=== PATIENT | male | born 1995 | race Caucasian/White ===

== ENCOUNTER → 2016-11-14 | Outpatient (CLI) | payer OTHER ==
[~2016-11-14] MED LIST: CLIN150C PO; OXYC-57 PO; OXYC1TAB3 PO
== END ==
LOC: C.LAB 03:32
DX: Z02.83 Encounter for blood-alcohol and blood-drug test (principal)

== ENCOUNTER 2017-02-27 02:13 | Emergency (ER) | payer OTHER ==
[~2017-02-27] VITALS: Ht 182.9 cm; Wt 97.4 kg
[2017-02-27 02:18] VITALS: TEMP 36.6; Ht 182.9 cm; Wt 97.4 kg
[2017-02-27] MEDS ORDERED: LIDOCAINE/EPINEPH/TETRACAINE 1 EA SYR EXT STA (02:37)
[2017-02-27] MEDS ORDERED: CLINDAMYCIN 150MG HOME PACK PO ONE (03:45)
--- NOTE | 2017-02-27 04:09 | EMERGENCY ROOM VISIT NOTE ---
History First contact with patient: 02:25 Chief Complaint: NASAL PAIN/INJURY Stated Complaint: BROKEN/BLEEDING NOSE,NECK HURTS History of Present Illness The patient is a 21 year old male who presents to the Emergency Room with complaints of facial pain, nasal pain, headache, neck pain after falling onto a keg tonight. Patient has a laceration to his upper lip and nasal bridge. He has a nosebleed that is now resolved. He's had plenty of alcohol but no drugs. Patient states his friends accidentally dropped on his face and hit the keg while trying to do a keg stand. Tetanus is current. Pain 4 out of 10. Nothing makes it better or worse. Patient denies eye pain, chest pain, dyspnea , abdominal pain, leg pain, arm pain, numbness, tingling, vision problems. Review of Systems See HPI for pertinent positives & negatives. A total of 10 systems reviewed and were otherwise negative. Past Medical/Surgical History Medical Problems: (1) No Known Active Medical Problems Social History Smoking Status: Never Smoker Alcohol Use: none Drug Use: none Marital Status: single Housing Status: lives with family Occupation Status: student Current/Historical Medications No Active Prescriptions or Reported Meds Allergies Coded Allergies: Amoxicillin (Verified Allergy, Severe, RASH, 02/27/17) Clavulanic Acid (Verified Allergy, Severe, RASH, 02/27/17) Watermelon (Unverified Allergy, Unknown, rash, 02/27/17) Physical Exam Vital Signs Date Time Temp Pulse Resp B/P Pulse Ox O2 Delivery O2 Flow Rate FiO2 02/27/17 03:17 75 18 131/70 97 Room Air 02/27/17 02:18 36.6 91 16 138/80 97 Room Air Physical Exam PHYSICAL EXAM: VITALS: Vitals are noted on the nurse's note and reviewed by myself. Vital signs stable. GENERAL: White male every 2 hours odor, in no acute distress, nondiaphoretic, well-developed well-nourished. SKIN: 3 cm upper lip laceration and nasal bridge superficial laceration The stent the skin was without obvious lacerations or abrasions. Capillary reflex less than 2 seconds. HEAD: Normocephalic atraumatic. EARS: External auditory canals clear, tympanic membranes pearly leiva without erythema or effusion bilaterally. No hemotympanums. No brizuela sign. No mastoid tenderness. EYES: Pupils equal round and reactive to light and accommodation. Conjunctivae with injection, sclerae without icterus. Extraocular movements intact. NOSE: Patent, turbinates without inflammation or discharge. No sinus tenderness. No septal hematoma, dried blood in both nares with nasal bridge abdomen is concerning for fracture and tender to palpation. FACE: Right-sided mandible facial bone tenderness. Patient unable to fully open her jaw secondary to pain MOUTH: Mucous membranes moist. Pharynx without erythema or exudate. Uvula midline. Airway patent. Tongue does not deviate. Dental exam: Upper gumline with superficial abrasion, no chipped teeth, second upper right incisor minimally loose. Patient states this is chronic for him. NECK: Supple without nuchal rigidity. Cervical spine is tender C5 and 6 in a c- collar was placed. No JVD. HEART: Regular rate and rhythm without murmurs gallops or rubs. LUNGS: Clear to auscultation bilaterally without wheezes, rales or rhonchi. No dullness to percussion. No retractions or accessory muscle use. No chest wall tenderness. ABDOMEN: Positive bowel sounds x 4. Normal tympanic percussion. Soft, nontender, without masses or organomegaly. No guarding or rebound tenderness. MUSCULOSKELETAL: No tenderness of the thoracic or lumbar spine. Full range of motion without tenderness to palpation in all extremities. Normal gait. Strength 5/5 throughout. Peripheral pulses 2+. NEURO: Patient was alert and oriented to person place and time. Normal Mini- Mental status exam. Normal sensation to light and sharp touch. Negative Romberg and pronator drift. Cerebellar function intact. No focal neurological deficits. Medical Decision & Procedures Medications Administered Medications (Trade) Dose Ordered Sig/Mindy Route Start Time Stop Time Status Last Admin Dose Admin Tetracaine/ Epinephrine/ Lidocaine (L.e.t. Gel 4%/ 1:100/0.5%) 1 ea NOW STAT EXT 02/27/17 02:37 02/27/17 02:39 DC 02/27/17 02:41 1 EA Clindamycin HCl (Cleocin 150MG Home Pack) 1 homepack UD ONCE PO 02/27/17 03:45 02/27/17 03:46 DC 02/27/17 03:54 1 HOMEPACK Procedure Location: upper lip Total length: 3cm Complexity: simple Verbal consent was obtained after the risks and benefits were explained, including but not limited to bleeding, scarring, infection, pain, and bone/joint /nerve damage. At this time, the risks of the procedure are less than the risks of NOT performing the procedure. A time out was taken and the correct patient and site identified. The skin was prepped with betadine. The target area was anesthetized with LET. Copious irrigation was performed using NS. The skin was re-prepped with betadine and a sterile field set. The wound was explored for foreign bodies and none found. Examination revealed no injury to deep structures such as tendons, bone, or significant blood vessels. Debridement was not performed. The wound edges were approximated using 7, 6-0 simple interrupted nylon sutures. Hemostasis and excellent approximation was achieved. Antibacterial ointment and a sterile dressing applied. Detailed wound care instructions and signs and symptoms of infection reviewed with the pt. No complications and the patient tolerated the procedure well. ED Course Prior records/ancillary studies reviewed. Triage Nursing notes reviewed. Additional history obtained from mother. The patient's history was concerning for traumatic injury Differential diagnosis: Etiologies such as fracture, dislocation, intra-abdominal, pneumothorax, intrathoracic , intracranial, neurologic, as well as other traumatic pathologies were entertained. Physical examination findings: As above. The patients vitals were stable. ER treatment provided: Laceration repaired as above Dermabond was placed to the superficial abrasion to the nasal bridge. On reassessment the patient felt better. Vital signs were stable. Diagnostic interpretation by me: Imaging studies: CT HEAD: No intracranial hemorrhage, skull fracture, or other acute intracranial abnormality. Nasal bone and nasal septum fractures. CT FACIAL: Nasal bone fractures with mild displacement. Fracture of the bony nasal septum. No evidence of additional facial bone fracture. Soft tissue swelling of the nose and upper lip. Mild opacities in the maxillary sinuses. CT C SPINE: No acute fracture or traumatic subluxation of the cervical spine. Straightening of the cervical spine which may be related to positioning or muscle spasm. Prominent adenoids. Correlate clinically. Radiologist: Gudelia Garcia MD Study ready at 03:31 and initial results transmitted This appears to be consistent with headache injury, nasal bone fracture, lacerations. Patient was advised to follow-up with ENT for his nasal bone injury and family care for the laceration. He was counseled on head injury and signs and symptoms and verbalized understanding this. He was advised to return to the ER immediately for headache, fevers, confusion, worsening signs or symptoms or as needed. Patient was neurovascularly and neurologically intact. His mom was caring for him tonight and I felt it was reasonable discharge him home in her care. By the evaluation outlined above emergent etiologies such as dislocation, intra-abdominal, pneumothorax, pulmonary contusion, hemothorax, intracranial, neurologic,as well as others were deemed relatively unlikely. The pt informed about the findings as listed above. All questions were answered and pleased with the treatment. Return instructions were outlined and the patient was discharged in stable condition. Outpatient prescription management: Clindamycin Referral: The patient was referred to ENT and family care for follow-up in 2 to 3 days for a recheck of the current condition. case reviewed with my Attending Medical Decision As above Impression Primary Impression: Head injury Additional Impressions: Nasal bone fracture Facial laceration Open mouth wound Nasal laceration Fall Departure Information Dispostion Home / Self-Care Condition GOOD Prescriptions No Active Prescriptions or Reported Meds Referrals No Doctor, Assigned (PCP) Patient Instructions My [facility] Additional Instructions Follow-up with ENT in one to 2 days, call for an appointment for your Nasal bone fracture and injury. Frequently apply ice to nasal bridge for 15 minutes 3 -4 times a day, not directly on the skin. Dental injury: Clindamycin 150mg: Take one pill 4 times daily for 10 days for your infection. Take with food, but avoid dairy. Avoid prolonged sun exposure since this medication makes you temporarily more susceptible to sunburns. All antibiotics can cause diarrhea. If this occurs and you feel worse or it does not resolve in 1-2 days follow up with your doctor or return to the Emergency Department as this could be signs of serious underlying problems. Any medication can cause an allergic reaction, stop the pills immediately and return to the ER for rash, hives, breathing difficulties, or swelling. [place] teeth twice a day, floss daily and do warm saltwater gargles 3 times a day. See a dentist as soon as possible for definitive care for your dental problem. Return to ER sooner for facial swelling, fever, redness, worsening signs or symptoms or as needed. Head injury and laceration: Keep wound clean and dry. Do not allow any crusting or dried blood to accumulate on sutures. If this occurs, use a 1:1 solution of hydrogen peroxide/ water on a Q-tip to clean the wound. Use an antibiotic ointment for 3-4 days, then let wound dry. Suture removal in 5-7 days. Return sooner for any signs of infection (increasing redness, swelling, drainage). Ice and elevate for swelling and pain. Keep covered when in sun until sutures removed then SPF 50 or higher for one year. Vitamin E oil if desired two weeks after suture removal for reduction of scar Read head injury handout and return for any symptoms. Tylenol 1000 mg as needed for pain (Maximum 3000 mg Tylenol in 24 hr period). Avoid alcohol and contact sports/activities for one week and follow up with family doctor prior to returning to these activities if still symptomatic. Ice and elevate head. If your symptoms persist more than a week then follow up with the concussion clinic. Call [phone]. Return to ER sooner for headache, fevers, confusion, worsening signs or symptoms or as needed. Problem Qualifiers Primary Impression: Head injury Encounter type: initial encounter Qualified Codes: S09.90XA - Unspecified injury of head, initial encounter Additional Impressions: Nasal bone fracture Encounter type: initial encounter Fracture type: open Qualified Codes: S02.2XXB - Fracture of nasal bones, initial encounter for open fracture Facial laceration Encounter type: initial encounter Qualified Codes: S01.81XA - Laceration without foreign body of other part of head, initial encounter
[2017-02-27] MEDS ORDERED: CLIN150C PO (04:11)
[2017-02-27 04:22] VITALS: BP 130/80; PULSE 83; O2SAT 98
--- NOTE | 2017-02-27 09:19 | DIAGNOSTIC IMAGING REPORT ---
CT OF THE HEAD WITHOUT CONTRAST CLINICAL HISTORY: Etoh, head/neck/facial pain/injury. COMPARISON STUDY: No previous studies for comparison. CT DOSE: 1047.43 mGy.cm TECHNIQUE: Helical axial images of the head were obtained without IV contrast. Automated exposure control was utilized for the study. FINDINGS: No acute intracranial hemorrhage, midline shift or mass effect is present. Ventricular system is normal. Basilar cisterns are patent. There are no extra-axial collections. Arthur-white differentiation is maintained. Fractures of the nasal bones and nasal septum are better depicted on the maxillofacial CT. No calvarial fractures identified. IMPRESSION: 1. No acute intracranial findings. 2. No calvarial fracture. 3. Bilateral nasal bone fractures and fractures of the nasal septum which are better depicted on the maxillofacial CT. Electronically signed by: Gee Zhao M.D. 02/27/2017 9:18 AM Dictated Date/Time: 02/27/2017 9:15 AM
--- NOTE | 2017-02-27 09:23 | DIAGNOSTIC IMAGING REPORT ---
MAXILLOFACIAL CT WITHOUT CONTRAST CLINICAL HISTORY: Etoh, head/neck/facial pain/injury. COMPARISON STUDY: None. TECHNIQUE: A maxillofacial CT was performed without IV contrast. Coronal and sagittal reformats were viewed. FINDINGS: Nasal soft tissue swelling is present. There is an acute comminuted, moderately displaced left nasal bone fracture with a minimally displaced right nasal bone fracture. There are minimally displaced fractures of the bony aspect of the nasal septum. Alignment of the temporomandibular joints is anatomic. Globes are intact. There is no retrobulbar hematoma. There is facial soft tissue swelling. IMPRESSION: Comminuted, moderately displaced left nasal bone fracture and minimally displaced fractures of the right nasal bone and nasal septum. Electronically signed by: Gee Zhao M.D. 02/27/2017 9:21 AM Dictated Date/Time: 02/27/2017 9:18 AM
--- NOTE | 2017-02-27 09:24 | DIAGNOSTIC IMAGING REPORT ---
CT OF THE CERVICAL SPINE WITHOUT CONTRAST CLINICAL HISTORY: Etoh, head/neck/facial pain/injury. COMPARISON STUDY: No previous studies for comparison. TECHNIQUE: Helical axial images of the cervical spine were obtained without IV contrast. Sagittal and coronal reconstructions were viewed. FINDINGS: There is straightening of the normal cervical lordosis. Alignment is otherwise anatomic. Vertebral body heights are maintained. Craniocervical junction is intact. There is no acute cervical spine fracture. There is no prevertebral edema. The adenoids are enlarged. IMPRESSION: No acute cervical spine fracture or subluxation. Electronically signed by: Gee Zhao M.D. 02/27/2017 9:23 AM Dictated Date/Time: 02/27/2017 9:21 AM
[2017-03-03] MEDS ORDERED: OXYC-57 PO (10:31)
== END 2017-02-27 04:24 | disposition home or self-care (01) ==
LOC: C.EDB 02:14 → C.EDA 04:24
DX: S09.90XA Unspecified injury of head, initial encounter (principal); S02.2XXA Fracture of nasal bones, initial encounter for closed fracture; S01.511A Laceration without foreign body of lip, initial encounter; S00.512A Abrasion of oral cavity, initial encounter; S00.31XA Abrasion of nose, initial encounter; W04.XXXA Fall while being carried or supported by other persons, initial encounter; M54.2 Cervicalgia

== ENCOUNTER → 2017-03-03 | Day surgery (SDC) | payer OTHER ==
--- NOTE | 2017-03-02 12:30 | History and Physical: Surg Cnt ---
History & Physical Date March 02, 2017. Chief Complaint nasal and septal fracture History of Present Illness The patient is a 21 year old male with complaints of Past Medical/Surgical History Medical Problems: (1) No Known Active Medical Problems Additional History Hepatic Disease: No Endocrine Disorder: No Kidney Disease: No Hypertension: No Heart Disease: No Bleeding Tendencies: No Infectious Diseases: No Allergies Coded Allergies: Amoxicillin (Verified Allergy, Severe, RASH, 02/27/17) Clavulanic Acid (Verified Allergy, Severe, RASH, 02/27/17) Watermelon (Unverified Allergy, Unknown, rash, 02/27/17) Home Medications Scheduled Clindamycin Hcl (Cleocin), 150 MG PO QID Physical Examination Skin: warm/dry, no rash Eyes: normal inspection, EOMI, sclerae normal ENT: normal ENT inspection, pharynx normal Head: normocephalic, atraumatic Neck: supple, no adenopathy, trachea midline Respiratory/Chest: lungs clear, normal breath sounds, no respiratory distress Cardiovascular: regular rate, rhythm, no edema, no murmur Abdomen / GI: normal bowel sounds, non tender Back: normal inspection Extremities: normal inspection, normal range of motion Neurologic/Psych: no motor/sensory deficits, alert, normal reflexes, oriented x 3 Diagnosis nasal and septal fracture Plan of Treatment septoplasty, closed reduction of nose
[~2017-03-03] VITALS: Ht 182.9 cm; Wt 94.0 kg
[~2017-03-03] MED LIST changes: +ATROPINE SULFATE 0.1 MG/ML 5ML SYR IV PRN; +BACITRACIN OINT 15 GM TUBE ONE; +CEFAZOLIN 2000 MG/60 ML D5W IV SCH; +DEXAMETHASONE SOD INJ 4 MG/ML VIAL ONE; +EpHEDrine SULFATE INJ 50 MG/ML AMP IV PRN; +EpINEphrine INJ 1MG/ML AMP 1 MG/ML AMP ONE; +FENTANYL CITRATE INJ 50 MCG/1 ML 2 ML VIAL IV PRN; +FENTANYL CITRATE INJ 50 MCG/1 ML 2 ML VIAL ONE; +FLUMAZENIL 0.1 MG/1 ML 10 ML VIAL IV PRN; +GELATIN SPONGE 12-7MM ONE; +HYDROmorphone INJ 2 MG/ML SYR/VIAL IV PRN; +LABETALOL HCL IV 5 MG/ML 20ML IV PRN; +LACTATED RINGER'S 1000ML 500 ML IV SCH; +LIDO 2%/EPINEPHRINE 1:100000 20 ML VIAL INFIL ONE; +LIDOCAINE 4% MPF SOAK 5 ML = 1 DOSE TOP ONE; +LIDOCAINE HCL 2% 2 ML VIAL (20MG/ML) ONE; +MEPERIDINE HCL 25 MG/ML CARP IV PRN; +MIDAZOLAM HCL 1 MG/ML 2ML VIAL ONE; +NALOXONE HCL 0.4 MG/1 ML VIAL/CARP IV PRN; +ONDANSETRON INJ 2 MG/ML 2 ML VIAL IV PRN; +ONDANSETRON INJ 2 MG/ML 2 ML VIAL ONE; +OXYCODONE/ACETAMINOPHEN 5-325 TAB PO PRN; +PHENYLEPHRINE 100MCG/ML 5ML SYR IV PRN; +PROPOFOL IV EMULSION 10 MG/ML 20 ML VIAL IV ONE; +SODIUM CHLORIDE 0.9% 1000ML 1,000 ML IV SCH
[2017-03-03 08:54] VITALS: Ht 182.9 cm; Wt 94.0 kg
--- NOTE | 2017-03-03 09:09 | History & Physical Bridge Note ---
H&P Re-Evaluation Bridge Note: I have examined the patient, reviewed the History & Physical and in the interval since the performance of the History & Physical I have noted the following changes of clinical significance: No changes noted
--- NOTE | 2017-03-03 10:32 | Discharge Instructions-SurgCtr ---
Discharge Instructions Date of Service March 03, 2017. Visit Reason for Visit: Nasal And Septal Fracture Discharge Discharge Diagnosis / Problem: same Discharge Goals Goal(s): Improve function, Therapeutic intervention Activity Recommendations Activity Limitations: resume your previous activity Anesthesia . Post Anesthesia Instructions: If you have had General Anesthesia or IV Sedation: * Do not drive today. * Resume driving when surgeon permits. * Do not make important decisions or sign legal documents today. * Call surgeon for: 1. Temperature elevations greater than 101 degrees F. 2. Uncontrollable pain. 3. Excessive bleeding. 4. Persistent nausea and vomiting. 5. Medication intolerance (nausea, vomiting or rash). * For nausea and vomiting use only clear liquids such as: tea, soda, bouillon until nausea subsides, then gradually increase diet as tolerated. * If you have any concerns or questions, call your surgeon's office. If physician is unavailable and it is an emergency, call 911 or go to the nearest emergency room. . Instructions / Follow-Up Instructions / Follow-Up ACTIVITY RECOMMENDATIONS: * Being up and around is good, but no strenuous activity, heavy lifting or physical exertion for one week. * Keep your head elevated 30 degrees when lying down or sleeping. * Do not blow your nose for 48 hours, sniff back instead. * Avoid hot showers. OVER THE COUNTER MEDICATIONS: * You may use Tylenol * Avoid aspirin or aspirin containing products, e.g. as they may increase bleeding. SPECIAL CARE INSTRUCTIONS: * Expect to have bloody drainage from your nose and/or down your throat for one to three days. Change drip pad as needed. * Begin irrigating your nose with saline solution today, at least six to ten times per day and sniff back to help remove old clots or crust. * You may experience nasal and facial congestion, pain and pressure, this is normal. * Please call with any significant and/or progressive pain, redness, swelling around the eyes, visual changes, fever of 101.5 degrees F, active bleeding or any problems or concerns. * If active bleeding occurs, spray the nose three times at one minute intervals with Afrin spray and call or cell phone: . If unable to reach the doctor, go to the nearest Emergency Department. Special Diet: * Avoid extremely hot fluids. FOLLOW UP VISIT: Follow-up Visit with Dr. Narayanan If not already scheduled, please call to schedule. Diet Recommendations Home Diet: no limitations Pending Studies Studies pending at discharge: no Medical Emergencies . Who to Call and When: Medical Emergencies: If at any time you feel your situation is an emergency, please call 911 immediately. . Non-Emergent Contact Non-Emergency issues call your: Primary Care Provider . . "Provider Documentation" section prepared by Mallory Narayanan. .
--- NOTE | 2017-03-03 11:46 | Anesthesia Progress Nt - [facility] ---
Anesthesia Post Op Note Date & Time March 03, 2017 at 11:46 Vital Signs Pain Intensity: 0 Vital Signs Past 12 Hours Date Time Temp Pulse Resp B/P Pulse Ox O2 Delivery O2 Flow Rate FiO2 03/03/17 11:36 116/71 03/03/17 11:33 53 3 03/03/17 11:33 55 3 100 03/03/17 11:32 57 7 99 03/03/17 11:32 57 7 03/03/17 11:31 120/72 03/03/17 11:30 36.9 51 20 120/72 99 Room Air 03/03/17 11:27 52 17 100 03/03/17 11:27 50 17 03/03/17 11:26 118/77 03/03/17 11:23 59 15 100 03/03/17 11:23 60 15 03/03/17 11:22 63 12 100 03/03/17 11:22 61 12 03/03/17 11:20 125/77 03/03/17 11:17 69 20 100 03/03/17 11:17 72 20 03/03/17 11:16 113/87 03/03/17 11:12 65 16 03/03/17 11:12 67 16 100 03/03/17 11:11 61 16 03/03/17 11:11 59 16 125/65 100 03/03/17 11:10 69 18 03/03/17 11:10 67 18 100 03/03/17 11:06 132/73 03/03/17 11:05 82 24 03/03/17 11:05 84 24 134/70 100 03/03/17 11:04 36.7 94 16 134/70 99 Mask 8 03/03/17 08:58 36.9 57 16 124/77 100 Room Air Notes Mental Status: alert / awake / arousable, participated in evaluation Pt Amnestic to Procedure: Yes Nausea / Vomiting: adequately controlled Pain: adequately controlled Airway Patency, RR, SpO2: stable & adequate BP & HR: stable & adequate Hydration State: stable & adequate Anesthetic Complications: no major complications apparent
[2017-03-03 11:47] VITALS: TEMP 36.4
[2017-03-03 12:03] VITALS: BP 120/74; PULSE 51; O2SAT 99
--- NOTE | 2017-03-03 16:03 | OPERATIVE REPORT ---
DATE OF OPERATION: 03/03/2017 REOPERATIVE DIAGNOSIS: Nasal and septal fracture. POSTOPERATIVE DIAGNOSIS: Same. PROCEDURE: Septoplasty and closed reduction of nose. SURGEON: Dr. Narayanan. ANESTHESIA: General endotracheal. COMPLICATIONS: None. BLOOD LOSS: Less than 10 mL. HISTORY OF PRESENT ILLNESS: A 21-year-old male, fell on his nose when doing a handstand. The dorsum of nose deviated to the left and the septum was deviated to the right. The above procedure felt to be indicated. DESCRIPTION OF PROCEDURE: The patient was brought to the operating room and placed in supine position. General anesthesia was induced using LMA. The nose was decongested using cottonoids with topical solution of 4 mL of 4% Xylocaine mixed with 1 mL of epinephrine. Injection 2% Xylocaine 1:1,000 strength epinephrine was also used. The bone spur to the right was isolated using the endoscope. Incision was made over the spur using the 15 blade, superior inferior tunnels were elevated and the cartilaginous spur was cut using the 15 blade and fractured laterally. The bony spur was then fractured upward and medially releasing the bony cartilaginous spur which was removed using the Desmond forceps returning the septum to the midline. Separately, on the left side there was a smaller spur projecting to the left, this was also isolated via superior inferior tunnels after making an incision with a 15 blade and the spur was fractured superiorly and removed using the Desmond forceps. The septum was packed with a half piece of Gelfoam on each side. The right nasal bone was deviated, this had to be elevated back in position with a padded freer and the left nasal bone was pushed back to the midline. The [place] splint was placed on the dorsum of the nose. The patient tolerated the procedure well and was taken to recovery area in satisfactory condition. I attest to the content of the Intraoperative Record and any orders documented therein. Any exceptio ns are noted below.
== END | disposition home or self-care (01) ==
LOC: X.SURG 08:40
PROVIDERS: ATTEND Otolaryngology
DX: S02.2XXA Fracture of nasal bones, initial encounter for closed fracture (principal); W18.39XA Other fall on same level, initial encounter; Y93.43 Activity, gymnastics

== ENCOUNTER 2017-03-12 02:41 | Emergency (ER) | payer OTHER ==
[~2017-03-12] VITALS: Ht 182.9 cm; Wt 93.7 kg
[~2017-03-12 02:41] MED LIST changes: -ATROPINE SULFATE 0.1 MG/ML 5ML SYR IV PRN; -BACITRACIN OINT 15 GM TUBE ONE; -CEFAZOLIN 2000 MG/60 ML D5W IV SCH; -CLIN150C PO; -DEXAMETHASONE SOD INJ 4 MG/ML VIAL ONE; -EpHEDrine SULFATE INJ 50 MG/ML AMP IV PRN; -EpINEphrine INJ 1MG/ML AMP 1 MG/ML AMP ONE; -FENTANYL CITRATE INJ 50 MCG/1 ML 2 ML VIAL IV PRN; -FENTANYL CITRATE INJ 50 MCG/1 ML 2 ML VIAL ONE; -FLUMAZENIL 0.1 MG/1 ML 10 ML VIAL IV PRN; -GELATIN SPONGE 12-7MM ONE; -HYDROmorphone INJ 2 MG/ML SYR/VIAL IV PRN; -LABETALOL HCL IV 5 MG/ML 20ML IV PRN; -LACTATED RINGER'S 1000ML 500 ML IV SCH; -LIDO 2%/EPINEPHRINE 1:100000 20 ML VIAL INFIL ONE; -LIDOCAINE 4% MPF SOAK 5 ML = 1 DOSE TOP ONE; -LIDOCAINE HCL 2% 2 ML VIAL (20MG/ML) ONE; -MEPERIDINE HCL 25 MG/ML CARP IV PRN; -MIDAZOLAM HCL 1 MG/ML 2ML VIAL ONE; -NALOXONE HCL 0.4 MG/1 ML VIAL/CARP IV PRN; -ONDANSETRON INJ 2 MG/ML 2 ML VIAL IV PRN; -ONDANSETRON INJ 2 MG/ML 2 ML VIAL ONE; -OXYC1TAB3 PO; -OXYCODONE/ACETAMINOPHEN 5-325 TAB PO PRN; -PHENYLEPHRINE 100MCG/ML 5ML SYR IV PRN; -PROPOFOL IV EMULSION 10 MG/ML 20 ML VIAL IV ONE; -SODIUM CHLORIDE 0.9% 1000ML 1,000 ML IV SCH
[2017-03-12 02:43] VITALS: TEMP 36.8; Ht 182.9 cm; Wt 93.7 kg
[2017-03-12] MEDS ORDERED: SODIUM CHLORIDE 0.9% 1000ML 1,000 ML IV STA ×2 (03:01)
[2017-03-12] MEDS ORDERED: LIDOCAINE/EPINEPH/TETRACAINE 1 EA SYR EXT STA (03:08)
[2017-03-12] MEDS ORDERED: CLINDAMYCIN IV 900 MG in DEXTROSE 5% ADD-VANTAGE 100ML 100 ML IV ONE (03:15)
[2017-03-12] MEDS ORDERED: LIDOCAINE/EPINEPHRINE 1% 20 ML VIAL INFIL ONE (03:15)
[2017-03-12 03:30] LABS: BASO % 0.7 %; BASO ABS # 0.06 K/uL (0-0.2); COMPLETE YES; EOS % 4.3 %; HEMATOCRIT 44.1 % (42-52); IG% 0.2 %; LYMPH % 16.4 %; LYMPH ABS # 1.42 K/uL (1.2-3.4); MEAN CELL VOLUME 85.6 fL (80-100); MEAN CORPUSCULAR HEMOGLOBIN 30.5 pg (25-34); MEAN CORPUSCULAR HGB CONC 35.6 g/dl (32-36); MEAN PLATELET VOLUME 9.6 fL (7.4-10.4); MONO % 9.6 %; NEUT % 68.8 %; PLATELET COUNT 201 K/uL (130-400); RED BLOOD COUNT 5.15 M/uL (4.7-6.1); WHITE BLOOD COUNT 8.66 K/uL (4.8-10.8)
[2017-03-12 03:53] LABS: BUN/CREATININE RATIO 9.1 (10-20); CALCIUM 8.8 mg/dl (8.5-10.1); CREATININE 0.95 mg/dl (0.60-1.40); POTASSIUM 3.4 mmol/L (3.5-5.1)
[2017-03-12 04:19] VITALS: BP 125/78; PULSE 75; O2SAT 100
[2017-03-12] MEDS ORDERED: CLIN150C PO (04:32)
[2017-03-12] MEDS ORDERED: OXYC1TAB3 PO ×2 (04:32→04:34)
--- NOTE | 2017-03-12 04:47 | EMERGENCY ROOM VISIT NOTE ---
History First contact with patient: 02:49 Chief Complaint: LACERATION/CUT (SUT/DERMABOND) Stated Complaint: SPLIT LIP Nursing Triage Summary: pt tried to jump off a sliding board and landed on his face. pt with laceration to lip, nose, and broken teeth. pt also has injury to leg. pt was only wearing his boxers. History of Present Illness The patient is a 21 year old male who presents to the Emergency Room with complaints of facial injury after he jumped off a slide trying to do a flip and landing on his face hitting the cement just prior to arrival. Patient complains of pain to his mid face and upper teeth and left hip. Pain 5 out of 10. Nothing makes it better or worse. Patient is intoxicated and has smoked marijuana tonight. Patient also complains of left hip pain with an abrasion. He is able to ambulate. Patient denies chest pain, dyspnea, back pain, abdominal pain, numbness, tingling, eye pain, ear pain. Review of Systems See HPI for pertinent positives & negatives. A total of 10 systems reviewed and were otherwise negative. Past Medical/Surgical History Medical Problems: (1) No Known Active Medical Problems Social History Smoking Status: Current Every Day Smoker Alcohol Use: none, occasionally Drug Use: marijuana Marital Status: single Housing Status: lives with family Current/Historical Medications Scheduled PRN Oxycodone/Acetaminophen 5MG/325MG (Percocet 5MG/325MG), 1-2 TABLETS PO Q4H PRN for Pain Allergies Coded Allergies: Amoxicillin (Verified Allergy, Severe, RASH, 03/03/17) Clavulanic Acid (Verified Allergy, Severe, RASH, 03/03/17) Watermelon (Unverified Allergy, Unknown, rash, 03/03/17) Physical Exam Vital Signs Date Time Temp Pulse Resp B/P Pulse Ox O2 Delivery O2 Flow Rate FiO2 03/12/17 02:43 36.8 82 18 132/78 98 Room Air Physical Exam PHYSICAL VITALS: Vitals are noted on the nurse's note and reviewed by myself. Vital signs stable. GENERAL: Pleasant male with EtOH odor, in no acute distress, nondiaphoretic, well-developed well-nourished. SKIN: Lacerations to the nasal bridge, typical nose, lower lip and abrasion to the left hip that is quite extensive The rest of the skin was without obvious lacerations or abrasions. Capillary reflex less than 2 seconds. HEAD: Normocephalic EARS: External auditory canals clear, tympanic membranes pearly leiva without erythema or effusion bilaterally. No hemotympanums. No brizuela sign. No mastoid tenderness. EYES: Pupils equal round and reactive to light and accommodation. Conjunctivae with injection, sclerae without icterus. Extraocular movements intact. NOSE: Patent, turbinates without inflammation or discharge. +sinus tenderness. No septal hematoma, dried blood in the nares 3 lacerations on the nose and one to the left moses FACE: Mid facial bone tenderness. Full range of motion of the jaw with tenderness. Dental Exam:Upper central incisors are chipped and broken to zone 2 on the right central incisor and zone 1 on the left central incisor and concerning for open alveolar ridge fracture MOUTH: Mucous membranes moist. Lower lip laceration through the vermilion border Pharynx without erythema or exudate. Uvula midline. Airway patent. Tongue does not deviate. NECK: Supple without nuchal rigidity. Cervical spine is nontender. Full range of motion of the neck without tenderness. No JVD. HEART: Regular rate and rhythm without murmurs gallops or rubs. LUNGS: Clear to auscultation bilaterally without wheezes, rales or rhonchi. No dullness to percussion. No retractions or accessory muscle use. No chest wall tenderness. ABDOMEN: Positive bowel sounds x 4. Normal tympanic percussion. Soft, nontender, without masses or organomegaly. No guarding or rebound tenderness. MUSCULOSKELETAL: No tenderness of the thoracic or lumbar spine. Left hip tender to palpation with increased pain with range of motion, No tenderness with pelvic rocking. Full range of motion without tenderness to palpation in all other extremities. Normal gait. Strength 5/5 throughout. Peripheral pulses 2+. NEURO: Patient was alert and oriented to person place and time. Normal Mini- Mental status exam. Normal sensation to light and sharp touch. Cerebellar function intact. No focal neurological deficits. Medical Decision & Procedures Laboratory Results 03/12/17 03:18 Red Blood Count 5.15, Mean Corpuscular Volume 85.6, Mean Corpuscular Hemoglobin 30.5, Mean Corpuscular Hemoglobin Concent 35.6, Mean Platelet Volume 9.6, Neutrophils (%) (Auto) 68.8, Lymphocytes (%) (Auto) 16.4, Monocytes (%) (Auto) 9.6, Eosinophils (%) (Auto) 4.3, Basophils (%) (Auto) 0.7, Neutrophils # (Auto) 5.96, Lymphocytes # (Auto) 1.42, Monocytes # (Auto) 0.83, Eosinophils # (Auto) 0.37, Basophils # (Auto) 0.06 03/12/17 03:18 Test 03/12/17 03:18 White Blood Count 8.66 K/uL (4.8-10.8) Red Blood Count 5.15 M/uL (4.7-6.1) Hemoglobin 15.7 g/dL (14.0-18.0) Hematocrit 44.1 % (42-52) Mean Corpuscular Volume 85.6 fL (80-100) Mean Corpuscular Hemoglobin 30.5 pg (25-34) Mean Corpuscular Hemoglobin Concent 35.6 g/dl (32-36) Platelet Count 201 K/uL (130-400) Mean Platelet Volume 9.6 fL (7.4-10.4) Neutrophils (%) (Auto) 68.8 % Lymphocytes (%) (Auto) 16.4 % Monocytes (%) (Auto) 9.6 % Eosinophils (%) (Auto) 4.3 % Basophils (%) (Auto) 0.7 % Neutrophils # (Auto) 5.96 K/uL (1.4-6.5) Lymphocytes # (Auto) 1.42 K/uL (1.2-3.4) Monocytes # (Auto) 0.83 K/uL (0.11-0.59) Eosinophils # (Auto) 0.37 K/uL (0-0.5) Basophils # (Auto) 0.06 K/uL (0-0.2) RDW Standard Deviation 38.1 fL (36.4-46.3) RDW Coefficient of Variation 12.2 % (11.5-14.5) Immature Granulocyte % (Auto) 0.2 % Immature Granulocyte # (Auto) 0.02 K/uL (0.00-0.02) Anion Gap 8.0 mmol/L (3-11) Est Creatinine Clear Calc Drug Dose 145.0 ml/min Estimated GFR () 131.2 Estimated GFR (Non- 113.2 BUN/Creatinine Ratio 9.1 (10-20) Calcium Level 8.8 mg/dl (8.5-10.1) Ethyl Alcohol mg/dL 218.0 mg/dl (0-3) Medications Administered Medications (Trade) Dose Ordered Sig/Mindy Route Start Time Stop Time Status Last Admin Dose Admin Clindamycin Phosphate 900 mg/ Dextrose 106 ml @ 100 mls/hr ONE ONCE IV 03/12/17 03:15 03/12/17 04:18 03/12/17 03:43 100 MLS/HR Sodium Chloride (Nss 1000ml) 1,000 ml @ 999 mls/hr Q1H1M STAT IV 03/12/17 03:01 03/12/17 04:01 DC 03/12/17 03:14 999 MLS/HR Tetracaine/ Epinephrine/ Lidocaine (L.e.t. Gel 4%/ 1:100/0.5%) 1 ea NOW STAT EXT 03/12/17 03:08 03/12/17 03:09 DC 03/12/17 03:19 1 EA Procedure Location: nose Total length: 1cm Complexity: simple Verbal consent was obtained after the risks and benefits were explained, including but not limited to bleeding, scarring, infection, pain, and bone/joint /nerve damage. At this time, the risks of the procedure are less than the risks of NOT performing the procedure. A time out was taken and the correct patient and site identified. The skin was prepped with betadine. The target area was anesthetized with LET. Copious irrigation was performed using NSS. The skin was re-prepped with betadine and a sterile field set. The wound was explored for foreign bodies and none found. Examination revealed no injury to deep structures such as tendons, bone, or significant blood vessels. Debridement was not performed. The wound edges were approximated using 2, 6-0 simple interrupted nylon sutures. Hemostasis and excellent approximation was achieved. Antibacterial ointment and a sterile dressing applied. Detailed wound care instructions and signs and symptoms of infection reviewed with the pt. No complications and the patient tolerated the procedure well. Location: nose Total length: 1cm Complexity: simple Verbal consent was obtained after the risks and benefits were explained, including but not limited to bleeding, scarring, infection, pain, and bone/joint /nerve damage. At this time, the risks of the procedure are less than the risks of NOT performing the procedure. A time out was taken and the correct patient and site identified. The skin was prepped with betadine. The target area was anesthetized with LET. Copious irrigation was performed using NSS. The skin was re-prepped with betadine and a sterile field set. The wound was explored for foreign bodies and none found. Examination revealed no injury to deep structures such as tendons, bone, or significant blood vessels. Debridement was not performed. The wound edges were approximated using 2, 6-0 simple interrupted nylon sutures. Hemostasis and excellent approximation was achieved. Antibacterial ointment and a sterile dressing applied. Detailed wound care instructions and signs and symptoms of infection reviewed with the pt. No complications and the patient tolerated the procedure well. Location: nose through left nostril Total length: 3 cm Complexity: Complex Verbal consent was obtained after the risks and benefits were explained, including but not limited to bleeding, scarring, infection, pain, and bone/joint /nerve damage. At this time, the risks of the procedure are less than the risks of NOT performing the procedure. A time out was taken and the correct patient and site identified. The skin was prepped with betadine. The target area was anesthetized with LET. Copious irrigation was performed using NSS. The skin was re-prepped with betadine and a sterile field set. The wound was explored for foreign bodies and none found. Examination revealed no injury to deep structures such as tendons, bone, or significant blood vessels. Debridement was not performed. The wound edges were approximated using 7, 6-0 simple interrupted nylon sutures. Hemostasis and excellent approximation was achieved. Antibacterial ointment and a sterile dressing applied. Detailed wound care instructions and signs and symptoms of infection reviewed with the pt. No complications and the patient tolerated the procedure well. Location: lower lip through vermilion border Total length: 3cm Complexity: complex Verbal consent was obtained after the risks and benefits were explained, including but not limited to bleeding, scarring, infection, pain, and bone/joint /nerve damage. At this time, the risks of the procedure are less than the risks of NOT performing the procedure. A time out was taken and the correct patient and site identified. The skin was prepped with betadine. The target area was anesthetized with 3 ml of 1% lidocaine with epinephrine. Copious irrigation was performed using NSS. The skin was re-prepped with betadine and a sterile field set. The wound was explored for foreign bodies and none found. Examination revealed no injury to deep structures such as tendons, bone, or significant blood vessels. Debridement was not performed. The wound edges were approximated using 6, 6-0 simple interrupted absorbable sutures. Vermilion border was well aligned. Hemostasis and excellent approximation was achieved. Antibacterial ointment and a sterile dressing applied. Detailed wound care instructions and signs and symptoms of infection reviewed with the pt. No complications and the patient tolerated the procedure well. ED Course Prior records/ancillary studies reviewed. Triage Nursing notes reviewed. Additional history obtained from friend. The patient's history was concerning for traumatic injury Differential diagnosis: Etiologies such as fracture, dislocation, intra-abdominal, pneumothorax, intrathoracic , intracranial, neurologic, as well as other traumatic pathologies were entertained. Physical examination findings: As above. The patients vitals were stable. ER treatment provided: IV Normal Saline hydration, 1000 mL. Clindamycin Tetanus is current. Lacerations were repaired as above On reassessment the patient felt better. Vital signs were stable. Diagnostic interpretation by me: The labs revealed stable H&H. Alcohol 214 Imaging studies: CT HEAD: No acute intracranial abnormality. No acute calvarial abnormality. CT FACIAL: Acute comminuted fracture of the nasal bones and nasal septum. Periapical lucencies noted about the central incisors of the maxilla with probable fracture of the alveolar ridge. Mild mucosal thickening and probable blood products in the paranasal. The globes and orbits are intact. Soft tissues are noted about the nasal bones and maxilla, likely posttraumatic. CT C SPINE: No acute fracture or traumatic malalignment Radiologist: Hesham Massey MD Hip x-ray with no acute fracture or dislocation per my interpretation Consultation: A consultation was placed with oral surgery, Dr. Giang. The case was discussed and diagnostics were reviewed. He recommends antibiotics, soft diet, salt water gargles and follow-up Tuesday in clinic. This appears to be consistent with head injury, nasal fracture that is open, alveolar ridge fracture that is open, dental injury and alcohol intoxication. Lacerations were repaired as above. Patient was started on antibiotics. He was strongly encouraged to follow-up ENT and oral surgeon for definitive care for his injuries. He is strongly advised to avoid excessive alcohol and do a soft diet. Patient was well-appearing. No other injuries are noted. He was advised to return to the ER immediately for headache, fevers, confusion, worsening signs or symptoms or as needed. He ambulated out of the ER without difficulties with this friend driving. Patient did not have acute abdomen on exam. His well-appearing. No other injuries were noted.. By the evaluation outlined above emergent etiologies such as intra-abdominal, pneumothorax, pulmonary contusion, hemothorax, intracranial, neurologic,as well as others were deemed relatively unlikely. The pt informed about the findings as listed above. All questions were answered and pleased with the treatment. Return instructions were outlined and the patient was discharged in stable condition. Outpatient prescription management: Arin Mclean Referral: The patient was referred to oral surgery and ENT for follow-up in 2 to 3 days for a recheck of the current condition. Case reviewed with my attending. Medical Decision As above Impression Primary Impression: Open nasal fracture Additional Impressions: Head injury Facial laceration Lip laceration Nasal laceration Alcohol intoxication Abrasion, left hip, initial encounter Injury of left hip Departure Information Dispostion Home / Self-Care Condition GOOD Referrals No Doctor, Assigned (PCP) Patient Instructions [facility] Additional Instructions Recommend no alcohol until cleared by oral surgery and ENT. Nasal fracture: Follow-up with Dr. Narayanan on Tuesday, call for an appointment at 8 AM. Frequently ice your nose 15 minutes 3-4 times a day, not directly on the skin. Do not forcefully blow your nose. Sleep with your head elevated. Soft diet until cleared by ENT and oral surgery. Head injury: Read head injury handout and return for any symptoms. Avoid alcohol and contact sports/activities for one week and follow up with family doctor prior to returning to these activities if still symptomatic. Ice and elevate head. If your symptoms persist more than a week then follow up with the concussion clinic. Call [phone]. Return to ER sooner for headache, fevers, confusion, worsening signs or symptoms or as needed. Recommend no alcohol for the next 48 hours and avoid binge drinking in the future. Dental injury: Clindamycin 150mg: Take one pill 4 times daily for 10 days. Take with food, but avoid dairy. Avoid prolonged sun exposure since this medication makes you temporarily more susceptible to sunburns. All antibiotics can cause diarrhea. If this occurs and you feel worse or it does not resolve in 1-2 days follow up with your doctor or return to the Emergency Department as this could be signs of serious underlying problems. Any medication can cause an allergic reaction, stop the pills immediately and return to the ER for rash, hives, breathing difficulties, or swelling. Oxycodone (OxyIR) 5mg: Take 1-2 pills every four hours for breakthrough pain. Avoid alcohol, operating machinery or dangerous equipment, working on ladders or roofs, DRIVING, or situations where being under the influence may be dangerous. It is recommended to use an [id number]-ghc-[id number] stool softener such as Colace, 100mg twice daily while taking this medication to avoid constipation. Ibuprofen(Motrin, Advil) may be used for fever or pain. Use 600mg every six hours as needed. Take with food. Avoid using more than 2400mg in a 24 hour period. Do not use 2400mg per day for more than three consecutive days without physician direction. Prolonged inappropriate use can lead to stomach upset or ulcers. This medication can be taken if you need to drive, work, or perform activities which may be dangerous when taking narcotic pain medication. (AND/OR) Acetaminophen(Tylenol) may be used for fever or pain. Use 1000mg every six hours as needed. Avoid using more than 3000mg in a 24 hour period. This medication can be taken if you need to drive, work, or perform activities which may be dangerous when taking narcotic pain medication. Orr teeth twice a day, floss daily and do warm saltwater gargles 3 times a day. Soft diet until cleared by ENT and oral surgery. See oral surgery on Tuesday. Call at 8 AM for your appointment. They're expecting your phone call. Return to ER sooner for facial swelling, fever, redness, worsening signs or symptoms or as needed. Laceration: Keep wound clean and dry. Do not allow any crusting or dried blood to accumulate on sutures. If this occurs, use a 1:1 solution of hydrogen peroxide/ water on a Q-tip to clean the wound. Use an antibiotic ointment for 3-4 days, then let wound dry. Suture removal in 5-7 days. Return sooner for any signs of infection (increasing redness, swelling, drainage). Ice and elevate for swelling and pain. Keep covered when in sun until sutures removed then SPF 50 or higher for one year. Vitamin E oil if desired two weeks after suture removal for reduction of scar. The stitches in your lip are dissolvable. Return to ER sooner for headache, fevers, confusion, pain, worsening signs or symptoms or as needed. Problem Qualifiers Primary Impression: Open nasal fracture Encounter type: initial encounter Qualified Codes: S02.2XXB - Fracture of nasal bones, initial encounter for open fracture Additional Impressions: Head injury Encounter type: initial encounter Qualified Codes: S09.90XA - Unspecified injury of head, initial encounter Facial laceration Encounter type: initial encounter Qualified Codes: S01.81XA - Laceration without foreign body of other part of head, initial encounter
--- NOTE | 2017-03-12 06:16 | DIAGNOSTIC IMAGING REPORT ---
CT SCAN OF THE FACIAL BONES WITHOUT IV CONTRAST CLINICAL HISTORY: Fall. Intoxication. Facial injury. COMPARISON STUDY: CT scan of the facial bones dated 02/27/2017. CT of the brain dated 03/12/2017. TECHNIQUE: High-resolution CT scan of the facial bones is performed. Images are reviewed in the axial, sagittal, and coronal planes. IV contrast was not administered for this examination. CT DOSE: 1353.75 mGy.cm FINDINGS: The skeletal structures are well mineralized. Again seen are comminuted bilateral nasal bone fractures with depressed fragments as well as a fracture of the bony nasal septum. There is increasing comminution of the nasal bone fractures and distraction of the fragments as compared to 02/27/2017. There is a new fracture through the anterior alveolar ridge of the maxilla. This fracture extends through the sockets of the central maxillary incisors. Periapical lucency is now seen around these teeth, and there may be fracture of the right central maxillary incisor. The bony orbits are intact and the orbital contents are within normal limits. The zygomatic arches and pterygoid plates are preserved. The mandible appears intact. There are no layering blood products within the paranasal sinuses. There is mild nodular mucosal thickening within the maxillary antra. The remaining paranasal sinuses appear clear. The blood is present within the nasal cavity. The mastoid air cells are clear. The visualized calvarium and upper cervical spine are maintained. Partially imaged brain parenchyma is within normal limits. There is perinasal soft tissue contusion. There is shotty bilateral cervical adenopathy. IMPRESSION: 1. Again seen are comminuted bilateral nasal bone fractures as well as a comminuted fracture of the bony nasal septum. There is increased comminution of the fractures and distraction of the fragments as compared to the 02/27/2017 examination. 2. There is overlying soft tissue edema and blood within the nasal cavity. 3. There is a new comminuted fracture through the anterior alveolar ridge of the maxilla. 4. The maxillary fracture extends through the sockets of the central maxillary incisors and there are now periapical lucencies seen around these teeth. There may also be fracture of the right central maxillary incisor. Follow-up with dentistry is recommended. 5. The bony orbits appear intact. Electronically signed by: Demetris Grace M.D. 03/12/2017 6:15 AM Dictated Date/Time: 03/12/2017 6:03 AM
--- NOTE | 2017-03-12 07:08 | DIAGNOSTIC IMAGING REPORT ---
CT SCAN OF THE CERVICAL SPINE CLINICAL HISTORY: Intoxication. Trauma. Fall. COMPARISON STUDY: CT scan of cervical spine dated 02/27/2017. TECHNIQUE: CT scan of the cervical spine is performed from the skull base to the upper thoracic spine. Images are reviewed in the axial, sagittal, and coronal planes. IV contrast was not administered for this examination. FINDINGS: Skeletal structures: The skeletal structures are well mineralized. There is no evidence of fracture or subluxation involving the cervical spine. Vertebral body height and alignment are maintained. There is straightening of the cervical lordosis. The odontoid process and lateral masses are intact. The atlantoaxial articulation is preserved. The spinous processes appear intact. Intervertebral discs: Posterior disc bulge is suggested at C5-C6. The disc spaces are well maintained. Central canal: Widely patent. Soft tissues: The prevertebral and paraspinous soft tissues are within normal limits. Shotty cervical lymph nodes are incidentally noted. Calvarium: The visualized calvarium at the skull base appears intact. Brain parenchyma: Partially visualized brain parenchyma the skull base is within normal limits. Sinuses and mastoids: The visualized paranasal sinuses are clear. The mastoid air cells are well pneumatized. Lung apices: Clear as visualized. IMPRESSION: There is no evidence of fracture or subluxation involving the cervical spine. Electronically signed by: Demetris Grace M.D. 03/12/2017 7:07 AM Dictated Date/Time: 03/12/2017 6:58 AM
--- NOTE | 2017-03-12 07:22 | DIAGNOSTIC IMAGING REPORT ---
CT SCAN OF THE BRAIN WITHOUT IV CONTRAST CLINICAL HISTORY: Fall. Intoxication. COMPARISON STUDY: CT scan of the brain dated 02/27/2017. TECHNIQUE: Unenhanced axial CT scan of the brain is performed from the vertex to the skull base. Automated dose control exposure was utilized. The skull base was scanned twice due to motion artifact. CT DOSE: Reported separately under the concurrently performed CT scan of the facial bones. FINDINGS: Brain parenchyma: The brain parenchyma is normal in appearance. There is no hemorrhage, mass effect, or evidence of acute territorial ischemia by CT criteria. Arthur-white matter is preserved. No extra-axial fluid collection is seen. Ventricles, sulci, cisterns: Normal in configuration. Intracranial vasculature: The visualized intracranial vasculature at the skull base is normal in appearance. Calvarium: There is no depressed calvarial fracture. There are comminuted and depressed nasal bone fractures as well as a comminuted fracture of the bony nasal septum. Sinuses and mastoids: The visualized paranasal sinuses are clear. The mastoid air cells are well pneumatized. Orbits: The bony orbits are grossly intact. IMPRESSION: 1. There is no hemorrhage, mass effect, or evidence of acute territorial ischemia by CT criteria. 2. There is no depressed calvarial fracture. 3. Comminuted fractures of the nasal bones and bony nasal septum. See report of CT scan of the facial bones performed concurrently for detailed facial bone findings. Electronically signed by: Demetris Grace M.D. 03/12/2017 7:20 AM Dictated Date/Time: 03/12/2017 7:18 AM
--- NOTE | 2017-03-12 07:40 | DIAGNOSTIC IMAGING REPORT ---
SINGLE VIEW PELVIS; 2 VIEWS LEFT HIP CLINICAL HISTORY: Fall. Intoxication. Left hip pain. FINDINGS: An AP view of the pelvis with AP and frog-leg views of left hip are obtained. No prior studies are available for comparison at the time of dictation. The skeletal structures are well mineralized. No fracture is seen in the hips or bony pelvis. The joint spaces of the hips are well-maintained. There is nonspecific bony protuberance identified on the anterior/superior aspect of the left femoral head/neck junction. This is similar frog-leg view. The sacroiliac joints are normal. There is mild sclerotic change at the pubic symphysis. The overlying soft tissues are within normal limits. There is a nonobstructed abdominal bowel gas pattern. IMPRESSION: 1. There is no radiographic evidence of fracture involving the hips or bony pelvis. 2. There is bony protuberance identified along the anterior/superior aspect of the left femoral head/neck junction. If the patient has chronic left hip pain this has been described in the setting of femoro-acetabular impingement syndrome. Clinical correlation will be essential. Electronically signed by: Demetris Grace M.D. 03/12/2017 7:39 AM Dictated Date/Time: 03/12/2017 7:34 AM
== END 2017-03-12 04:45 | disposition home or self-care (01) ==
LOC: C.EDB 02:42 → C.EDA 04:45
DX: S02.2XXB Fracture of nasal bones, initial encounter for open fracture (principal); S09.90XA Unspecified injury of head, initial encounter; S01.511A Laceration without foreign body of lip, initial encounter; S01.21XA Laceration without foreign body of nose, initial encounter; S70.212A Abrasion, left hip, initial encounter; S79.912A Unspecified injury of left hip, initial encounter; W17.89XA Other fall from one level to another, initial encounter; F10.129 Alcohol abuse with intoxication, unspecified; Y90.7 Blood alcohol level of 200-239 mg/100 ml; S02.5XXA Fracture of tooth (traumatic), initial encounter for closed fracture; F12.90 Cannabis use, unspecified, uncomplicated; F17.200 Nicotine dependence, unspecified, uncomplicated

== ENCOUNTER 2017-03-13 12:35 | Emergency (ER) | payer OTHER ==
[~2017-03-13] VITALS: Ht 182.9 cm; Wt 90.8 kg
[~2017-03-13 12:35] MED LIST changes: +CLIN150C PO; +OXYC1TAB3 PO
[2017-03-13 12:40] VITALS: TEMP 36.7; Ht 182.9 cm; Wt 90.8 kg
[2017-03-13] MEDS ORDERED: SODIUM CHLORIDE 0.9% 1000ML 1,000 ML IV STA ×2 (12:51→14:49)
[2017-03-13] MEDS ORDERED: SODIUM CHLORIDE 0.9% 1000ML 1,000 ML IV ONE (12:51)
--- NOTE | 2017-03-13 12:57 | EMERGENCY ROOM VISIT NOTE ---
History Report prepared by Beckie: Francisco Mesa Under the Supervision of: Dr. Bipin Curry M.D. First contact with patient: 12:45 Chief Complaint: FACIAL PAIN/INJURY Stated Complaint: FACIAL INJURY, DEHYDRATION, HIP PAIN History of Present Illness The patient is a 21 year old male who presents to the Emergency Room with complaints of facial pain that began two days ago. He was seen in the ER at this time. He received a CT scan that showed a nasal fracture. He also had a lip laceration repair. He was sent home with Clindamycin. He was jumping on a board that was 7 feet in the air, slipped and fell. He landed on his face. He did not lose consciousness. He presents here today because he is having extreme difficulty eating, drinking, and taking his antibiotics secondary to his mouth and facial swelling. He denies any vomiting, chest pain, abdominal pain, or any new symptoms. Source of History: patient Onset: 2 days ago Position: other (Face) Symptom Intensity: moderate Quality: ache Timing: constant Associated Symptoms: No LOC, No abdominal pain, No chest pain, No fevers, No vomiting Note: He is having increased trouble with oral intake. Review of Systems See HPI for pertinent positives & negatives. A total of 10 systems reviewed and were otherwise negative. Past Medical & Surgical Medical Problems: (1) No Known Active Medical Problems Old medical records were reviewed. Nurse's notes were reviewed and I agree with. Family History FHx: cancer Hypertension Social History Smoking Status: Never Smoker Smokeless Tobacco Use: Yes Alcohol Use: none, occasionally Drug Use: marijuana Marital Status: single Housing Status: lives with family Current/Historical Medications Scheduled Clindamycin Hcl (Cleocin), 150 MG PO QID Scheduled PRN Oxycodone Immediate Rel Tab (Roxicodone Ir), 1-2 TAB PO Q4H PRN for Severe Pain Oxycodone/Acetaminophen 5MG/325MG (Percocet 5MG/325MG), 1-2 TABLETS PO Q4H PRN for Pain Allergies Coded Allergies: Amoxicillin (Verified Allergy, Severe, RASH, 03/13/17) Clavulanic Acid (Verified Allergy, Severe, RASH, 03/13/17) Watermelon (Unverified Allergy, Unknown, rash, 03/13/17) Physical Exam Vital Signs Date Time Temp Pulse Resp B/P Pulse Ox O2 Delivery O2 Flow Rate FiO2 03/13/17 14:23 62 16 133/90 99 Room Air 03/13/17 12:40 36.7 72 20 130/82 97 Room Air Physical Exam General: Young male. Has healing injuries to his face. Well developed well nourished in no acute distress, breathing comfortably on room air. Normal speech. Awake, alert, and oriented x3. HEENT: Moderate swelling of the nose and face. Mid face is stable. Pupils are equal round and reactive to light. Extraocular movements are intact. Oropharynx is pink with moist mucous membranes. No swelling of the mouth lips or tongue. Dental trauma anteriorly. No active bleeding from nose. Neck: Supple with a midline trachea. No meningeal signs or stiffness, no JVD or bruits. No Stridor. Chest: Clear to auscultation bilaterally. No wheezes or rhonchi. No increased work of breathing. Heart: regular rate and rhythm. Abdomen: Soft nontender, nondistended without rebound guarding or rigidity. Extremities: No cyanosis clubbing or edema. No calf tenderness or assymetry Spine/Back. Non tender to palpation. No CVA tenderness Skin: Good turgor without rashes. Neurologic exam: Cranial nerves two through 12 are intact. Motor and sensation are intact and symmetrical throughout. GCS 15. Medical Decision & Procedures Laboratory Results 03/13/17 13:00 Red Blood Count 5.46, Mean Corpuscular Volume 87.2, Mean Corpuscular Hemoglobin 30.4, Mean Corpuscular Hemoglobin Concent 34.9, Mean Platelet Volume 10.0, Neutrophils (%) (Auto) 76.9, Lymphocytes (%) (Auto) 9.0, Monocytes (%) (Auto) 12.3, Eosinophils (%) (Auto) 1.5, Basophils (%) (Auto) 0.2, Neutrophils # (Auto ) 7.66, Lymphocytes # (Auto) 0.90, Monocytes # (Auto) 1.23, Eosinophils # (Auto ) 0.15, Basophils # (Auto) 0.02 03/13/17 13:00 Test 03/13/17 13:00 White Blood Count 9.97 K/uL (4.8-10.8) Red Blood Count 5.46 M/uL (4.7-6.1) Hemoglobin 16.6 g/dL (14.0-18.0) Hematocrit 47.6 % (42-52) Mean Corpuscular Volume 87.2 fL (80-100) Mean Corpuscular Hemoglobin 30.4 pg (25-34) Mean Corpuscular Hemoglobin Concent 34.9 g/dl (32-36) Platelet Count 190 K/uL (130-400) Mean Platelet Volume 10.0 fL (7.4-10.4) Neutrophils (%) (Auto) 76.9 % Lymphocytes (%) (Auto) 9.0 % Monocytes (%) (Auto) 12.3 % Eosinophils (%) (Auto) 1.5 % Basophils (%) (Auto) 0.2 % Neutrophils # (Auto) 7.66 K/uL (1.4-6.5) Lymphocytes # (Auto) 0.90 K/uL (1.2-3.4) Monocytes # (Auto) 1.23 K/uL (0.11-0.59) Eosinophils # (Auto) 0.15 K/uL (0-0.5) Basophils # (Auto) 0.02 K/uL (0-0.2) RDW Standard Deviation 39.7 fL (36.4-46.3) RDW Coefficient of Variation 12.4 % (11.5-14.5) Immature Granulocyte % (Auto) 0.1 % Immature Granulocyte # (Auto) 0.01 K/uL (0.00-0.02) Anion Gap 5.0 mmol/L (3-11) Est Creatinine Clear Calc Drug Dose 97.8 ml/min Estimated GFR () 89.8 Estimated GFR (Non- 77.5 BUN/Creatinine Ratio 11.4 (10-20) Calcium Level 9.4 mg/dl (8.5-10.1) Laboratory studies as stated above per my review. Medications Administered Medications (Trade) Dose Ordered Sig/Mindy Route Start Time Stop Time Status Last Admin Dose Admin Sodium Chloride 1,000 ml @ 999 mls/hr Q1H1M STAT IV 03/13/17 12:51 03/13/17 13:51 DC 03/13/17 13:13 999 MLS/HR Sodium Chloride 1,000 ml @ 200 mls/hr Q5H ONCE IV 03/13/17 12:51 03/13/17 15:52 DC 03/13/17 13:13 200 MLS/HR Clindamycin Phosphate 600 mg/ Dextrose 54 ml @ 108 mls/hr ONE ONCE IV 03/13/17 13:15 03/13/17 13:44 DC 03/13/17 13:13 108 MLS/HR Sodium Chloride (Nss 1000ml) 1,000 ml @ 999 mls/hr Q1H1M STAT IV 03/13/17 14:49 03/13/17 15:49 DC 03/13/17 14:49 999 MLS/HR ED Course 1245: Past medical records reviewed. The patient was evaluated in room C2, and a complete history and physical examination were performed. 1251: Ordered Sodium Chloride 1000 ml @ 200 mls/hr IV, Sodium Chloride 1000 ml @ 999 mls/hr IV 1315: Ordered Clindamycin Phosphate 600 mg/Dextrose 54 ml @ 108 mls/hr IV 1445: The patient is doing well. He is getting his second liter of fluid. 1449: Ordered Sodium Chloride 1000 ml @ 999 mls/hr IV 1500: I spoke with the [facility] pharmacist at this time. They recommend opening the Clindamycin capsules into apple sauce for the patient's consumption. 1545: Upon reevaluation, the patient is resting. I discussed the results and treatment plan with him. He verbalized agreement of the treatment plan. The patient was discharged home. Medical Decision Differentials include dehydration, traumatic injuries, electrolyte or metabolic abnormality, and infection. Medication Reconciliation: I attest that I have personally reviewed the patient' s current medication list. Blood pressure Screening: Patient was found to have normal blood pressure on screening and does not require follow-up. This patient comes in as described above. He had a significant facial injury 2 days ago. He was here and had CAT scan of his head face and neck. Nothing has changed with exception of the fact his mother is concerned that he can not take his medicine or drink well because of the cut and trauma to lower his lip. He looks well hydrated. IV access established and he was was given a 1 L IV and normal saline bolus and 200 mL an hour normal saline and he was given clindamycin 600 mg IV. There is nothing changed otherwise has no fever. He does have some dried blood in his nares no active bleeding his midface is stable. He does have some dental injuries as well which are not changed. His mother was concerned that he needs IV hydration and antibiotics. He was hydrated with 2 L while he was here he has trouble swallowing these pills. I did discuss with the pharmacist and actually the clindamycin you can open the caplets and put them in applesauce and swallowing the patient says he thinks he can do this without problems he will try this. He will follow-up with his doctor on Tuesday for recheck and return if: Fever, worsening of symptoms, any new problems or concerns and avoid blowing his nose. Consults Time Called: 1455 Consulting Physician: [facility] Returned Call: [phone] Please see ED course for more information. Impression Primary Impression: Dehydration Additional Impression: Multiple facial fractures Scribe Attestation The scribe's documentation has been prepared under my direction and personally reviewed by me in its entirety. I confirm that the note above accurately reflects all work, treatment, procedures, and medical decision making performed by me. Departure Information Dispostion Home / Self-Care Referrals No Doctor, Assigned (PCP) Forms HOME CARE DOCUMENTATION FORM, IMPORTANT VISIT INFORMATION, WORK / SCHOOL INSTRUCTIONS Patient Instructions My [facility] Additional Instructions Rest Drink plenty of fluids. Use can try opening the clindamycin capsules in applesauce and swallowing it Return if: Fever or chills, worsening of symptoms, any new problems or concerns Follow-up with Dr. Narayanan on Tuesday for recheck Problem Qualifiers
[2017-03-13] MEDS ORDERED: CLINDAMYCIN 600 MG/54 ML D5W IV ONE (13:00)
[2017-03-13 13:15] LABS: BASO % 0.2 %; BASO ABS # 0.02 K/uL (0-0.2); COMPLETE YES; EOS % 1.5 %; HEMATOCRIT 47.6 % (42-52); IG% 0.1 %; MEAN CELL VOLUME 87.2 fL (80-100); MEAN CORPUSCULAR HEMOGLOBIN 30.4 pg (25-34); MEAN CORPUSCULAR HGB CONC 34.9 g/dl (32-36); MONO % 12.3 %; NEUT % 76.9 %; PLATELET COUNT 190 K/uL (130-400); RED BLOOD COUNT 5.46 M/uL (4.7-6.1); WHITE BLOOD COUNT 9.97 K/uL (4.8-10.8)
[2017-03-13] MEDS ORDERED: CLINDAMYCIN IV 600 MG in DEXTROSE 5% ADD-VANTAGE 50ML 50 ML IV ONE (13:15)
[2017-03-13 13:36] LABS: BUN/CREATININE RATIO 11.4 (10-20); CALCIUM 9.4 mg/dl (8.5-10.1); CREATININE 1.3 mg/dl (0.60-1.40)
[2017-03-13 14:23] VITALS: BP 133/90; PULSE 62; O2SAT 99
== END 2017-03-13 15:39 | disposition home or self-care (01) ==
LOC: C.EDB 12:35 → C.EDC 15:39
DX: E86.0 Dehydration (principal); S02.92XD Unspecified fracture of facial bones, subsequent encounter for fracture with routine healing; W17.89XD Other fall from one level to another, subsequent encounter; Z80.9 Family history of malignant neoplasm, unspecified; Z82.49 Family history of ischemic heart disease and other diseases of the circulatory system